=== PATIENT | male | born 1950 | race Caucasian/White ===

== ENCOUNTER 2019-10-01 13:10 | Outpatient (RCR) | payer MEDICARE ==
[~2019-10-01 13:10] MED LIST: BACTRIM DS TAB1 EACH PO; CRESTOR40 MG PO; EFFIENT10 MG PO; GABAPENTIN300 MG PO; HUMALOG100 UNIT/1 SQ; LEVOTHROID100 MCG PO; TORSEMIDE20 MG PO; ULORIC80 MG PO; VICODIN ES 7.51 EACH PO
[2019-10-01] MEDS ORDERED: LIDOCAINE/PRILOCAINE 2.5-2.5% KIT ONE ×2 (13:44→13:45)
[2019-10-01] MEDS ORDERED: MINERAL OIL/PETROLAT/GLYCERI 6OZ BTL ONE ×2 (13:44→13:45)
== END 2019-10-05 ==
LOC: WCC 13:10
PROVIDERS: ATTEND Podiatrist
DX: E10.8 Type 1 diabetes mellitus with unspecified complications (principal); L97.411 Non-pressure chronic ulcer of right heel and midfoot limited to breakdown of skin; L03.818 Cellulitis of other sites; I73.9 Peripheral vascular disease, unspecified; M10.9 Gout, unspecified; R60.0 Localized edema; L84 Corns and callosities; I10 Essential (primary) hypertension; N18.3 Chronic kidney disease, stage 3 (moderate); E03.8 Other specified hypothyroidism

== ENCOUNTER 2019-10-29 14:39 | Outpatient (RCR) | payer MEDICARE ==
[2019-10-29] MEDS ORDERED: LIDOCAINE/PRILOCAINE 2.5-2.5% KIT ONE (15:23)
== END 2019-11-04 ==
LOC: WCC 14:39
PROVIDERS: ATTEND Podiatrist
DX: E10.8 Type 1 diabetes mellitus with unspecified complications (principal); L97.411 Non-pressure chronic ulcer of right heel and midfoot limited to breakdown of skin; L03.818 Cellulitis of other sites; I73.9 Peripheral vascular disease, unspecified; R60.0 Localized edema; M10.9 Gout, unspecified; L84 Corns and callosities; N18.3 Chronic kidney disease, stage 3 (moderate); I10 Essential (primary) hypertension; E03.8 Other specified hypothyroidism

== ENCOUNTER 2019-12-03 14:11 | Outpatient (RCR) | payer MEDICARE | END 2019-12-05 | LOC: WCC 14:11 | PROVIDERS: ATTEND Podiatrist | DX: E10.8 Type 1 diabetes mellitus with unspecified complications (principal); L03.818 Cellulitis of other sites; L97.411 Non-pressure chronic ulcer of right heel and midfoot limited to breakdown of skin; I73.9 Peripheral vascular disease, unspecified; R60.0 Localized edema; M10.9 Gout, unspecified; L84 Corns and callosities; N18.3 Chronic kidney disease, stage 3 (moderate); I10 Essential (primary) hypertension; E03.8 Other specified hypothyroidism | CPT/HCPCS: 11042 ×2; 15275; 99212; 99213 ×2; Q4101 ==

== ENCOUNTER 2019-12-31 12:19 | Outpatient (RCR) | payer MEDICARE ==
[~2019-12-31 12:19] MED LIST changes: +LIDOCAINE VISC 2% SOLN 15 ML UDC ONE; +LIDOCAINE/PRILOCAINE 2.5-2.5% KIT ONE
== END 2020-01-05 ==
LOC: WCC 12:19
PROVIDERS: ATTEND Podiatrist
DX: E08.22 Diabetes mellitus due to underlying condition with diabetic chronic kidney disease (principal); L97.411 Non-pressure chronic ulcer of right heel and midfoot limited to breakdown of skin; L03.818 Cellulitis of other sites; R60.0 Localized edema; I73.9 Peripheral vascular disease, unspecified; L84 Corns and callosities; M10.9 Gout, unspecified; N18.3 Chronic kidney disease, stage 3 (moderate); I10 Essential (primary) hypertension; E03.8 Other specified hypothyroidism
CPT/HCPCS: 15275 ×4; 99213 ×4; Q4101 ×4

== ENCOUNTER → 2020-02-04 | Outpatient (RCR) | payer MEDICARE ==
[~2020-02-04] MED LIST changes: +CADEXOMER IODINE 30 GM TUBE ONE; +FLUOCINONIDE 0.05% 1 EA/15 GM TUBE ONE; -LIDOCAINE VISC 2% SOLN 15 ML UDC ONE; +SILVER SULFADIAZINE 50GM CREAM ONE
== END ==
LOC: EDSEX → WCC 01-07 13:45
PROVIDERS: ATTEND Podiatrist
DX: E08.22 Diabetes mellitus due to underlying condition with diabetic chronic kidney disease (principal); L97.411 Non-pressure chronic ulcer of right heel and midfoot limited to breakdown of skin; L03.818 Cellulitis of other sites; L84 Corns and callosities; R60.0 Localized edema; I73.9 Peripheral vascular disease, unspecified; M10.9 Gout, unspecified; N18.3 Chronic kidney disease, stage 3 (moderate); I10 Essential (primary) hypertension; E03.8 Other specified hypothyroidism
CPT/HCPCS: 11042 ×4; 15275; 99213 ×5; Q4106

== ENCOUNTER 2020-03-03 14:17 | Outpatient (RCR) | payer MEDICARE ==
[~2020-03-03 14:17] MED LIST changes: -FLUOCINONIDE 0.05% 1 EA/15 GM TUBE ONE; +GENTAMICIN SULFATE 15 GM CR TP ONE; +MINERAL OIL/PETROLAT/GLYCERI 6OZ BTL ONE
== END 2020-03-06 ==
LOC: EDSEX → WCC 14:17
PROVIDERS: ATTEND Podiatrist
DX: E08.22 Diabetes mellitus due to underlying condition with diabetic chronic kidney disease (principal); L97.411 Non-pressure chronic ulcer of right heel and midfoot limited to breakdown of skin; S81.801A Unspecified open wound, right lower leg, initial encounter; L03.818 Cellulitis of other sites; R60.0 Localized edema; I73.9 Peripheral vascular disease, unspecified; S90.821A Blister (nonthermal), right foot, initial encounter; L84 Corns and callosities; M10.9 Gout, unspecified; N18.30 Chronic kidney disease, stage 3 unspecified; I10 Essential (primary) hypertension; E03.8 Other specified hypothyroidism; W01.198A Fall on same level from slipping, tripping and stumbling with subsequent striking against other object, initial encounter
CPT/HCPCS: 87071; 87075; 87186; 87205

== ENCOUNTER 2020-03-24 13:38 | Outpatient (RCR) | payer MEDICARE ==
[~2020-03-24 13:38] MED LIST changes: -CADEXOMER IODINE 30 GM TUBE ONE; +FLUOCINONIDE 0.05% 1 EA/15 GM TUBE ONE; -GENTAMICIN SULFATE 15 GM CR TP ONE; +LIDOCAINE VISC 2% SOLN 15 ML UDC ONE; -LIDOCAINE/PRILOCAINE 2.5-2.5% KIT ONE; -MINERAL OIL/PETROLAT/GLYCERI 6OZ BTL ONE; -SILVER SULFADIAZINE 50GM CREAM ONE
[2020-03-24] MEDS ORDERED: LIDOCAINE/PRILOCAINE 2.5-2.5% KIT ONE (14:02)
== END 2020-04-05 ==
LOC: WCC 13:38
PROVIDERS: ATTEND Podiatrist
DX: E08.22 Diabetes mellitus due to underlying condition with diabetic chronic kidney disease (principal); S81.801A Unspecified open wound, right lower leg, initial encounter; L97.411 Non-pressure chronic ulcer of right heel and midfoot limited to breakdown of skin; R60.0 Localized edema; L03.818 Cellulitis of other sites; I73.9 Peripheral vascular disease, unspecified; M10.9 Gout, unspecified; S90.821A Blister (nonthermal), right foot, initial encounter; N18.30 Chronic kidney disease, stage 3 unspecified; I10 Essential (primary) hypertension; E03.8 Other specified hypothyroidism; W01.198A Fall on same level from slipping, tripping and stumbling with subsequent striking against other object, initial encounter
CPT/HCPCS: 36415; 82948